=== PATIENT | female | born 1990 | race Caucasian/White ===

== ENCOUNTER 2017-09-09 20:40 | Emergency (ER) | payer SELFPAY ==
[~2017-09-09] VITALS: Ht 152.4 cm; Wt 63.2 kg
[~2017-09-09 20:40] MED LIST: BACT800T5 PO; CLOB-50 TOP; METH10TA PO
[2017-09-09 20:45] VITALS: BP 106/61; PULSE 110; RESP 18; TEMP 99; O2SAT 96
[2017-09-09 21:27] LABS: BILIRUBIN, URINE NEG (NEG); BLOOD, URINE NEG (NEG); GLUCOSE,URINE NEG (NEG); KETONE, URINE TRACE mg/dL (NEG); NITRITE,URINE NEG (NEG); URINE COLOR YELLOW (YELLW/STRAW); URINE LEUKOCYTE ESTERASE NEG (NEG)
--- NOTE | 2017-09-09 21:32 | PD ---
HPI Chief Complaint: Cold / Flu Symptoms Time Seen by Provider: 20:48 Travel History International Travel<30 days: No Contact w/Intl Traveler<30days: No Traveled to known affect area: No History of Present Illness HPI pt is a 21 y.o female who presents to the ED with a cc of Fever, and H/A. she states that yesterday morning she woke up feeling febrile. Soon after she started having chills and cold sweats. Later that day bifrontal pressure like H/ A started. H/A is 7/10 and is constant. Denies photophobia or phonophobia. She also reports having nausea and vomiting. Vomited twice yesterday.Pt also denies SOB, CP, abdominal pain, changes in BM or urination. Otherwise healthy no history of drug abuse or HIV. States symptoms are moderate, started today, constant, associated signs and symptoms in context as above. 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 She appears quite well, nontoxic. SKIN: Warm and dry. HEAD: Atraumatic. Normocephalic. EYES: Pupils equal and round. No scleral icterus. No injection or drainage. ENT: No nasal bleeding or discharge. Mucous membranes pink and moist. pharynx is mildly erythematous. NECK: Trachea midline. No JVD. R sided cervical lymphadenopathy CARDIOVASCULAR: Regular rate and rhythm. RESPIRATORY: No accessory muscle use. Clear to auscultation. Breath sounds equal bilaterally. GASTROINTESTINAL: Abdomen soft, non-tender, nondistended. Hepatic and splenic margins not palpable. MUSCULOSKELETAL: Extremities without clubbing, cyanosis, or edema. No obvious deformities. NEUROLOGICAL: Awake and alert. No obvious cranial nerve deficits. Motor grossly within normal limits. Five out of 5 muscle strength in the arms and legs. Normal speech. PSYCHIATRIC: Appropriate mood and affect; insight and judgment normal. Data Data Last Documented VS Vital Signs Date Time Temp Pulse Resp B/P (MAP) Pulse Ox O2 Delivery O2 Flow Rate FiO2 09/09/17 23:18 98 20 98/66 (77) 96 09/09/17 21:26 Room Air 09/09/17 20:45 99.0 Orders Orders Urinalysis - C+S If Indicated (09/09/17 20:48) Ed Urine Pregnancytest Poc (09/09/17 20:48) Group A Rapid Strep Screen (09/09/17 21:38) Acetaminophen (Tylenol) (09/09/17 22:00) Ondansetron Odt (Zofran Odt) (09/09/17 22:00) Ed Discharge Order (09/09/17 22:53) Strep Culture (Group A) (09/10/17 22:00) Labs Laboratory Tests Test 09/09/17 21:10 Urine Color YELLOW Urine Turbidity CLEAR Urine pH 7.0 Urine Specific Venus 1.010 Urine Protein TRACE mg/dL Urine Glucose (UA) NEG mg/dL Urine Ketones TRACE mg/dL Urine Occult Blood NEG Urine Nitrite NEG Urine Bilirubin NEG Urine Urobilinogen 2.0 MG/DL Urine Leukocyte Esterase NEG Urine RBC 0-3 /hpf Urine WBC 3-5 /hpf Urine Squamous Epithelial Cells 0-5 /hpf Urine Bacteria FEW /hpf Urine Mucus FEW /lpf Urine Yeast (Budding) RARE Microscopic Urinalysis Comment CULT NOT INDICATED MDM Medical Decision Making Medical Screen Exam Complete: Yes Emergency Medical Condition: Yes Differential Diagnosis Strep pharyngitis, influenza,viral pharyngitis, pneumonia, URI Narrative Course Patient room to the emergency department, she appears quite well in obvious distress, patient is minimally tachycardic in the low 100s. 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 Overall she appears quite healthy in no distress, there is no physical exam findings to suggest sepsis in this patient nor hypoperfusion. Her UA was negative, I do not see an indication for further workup of this patient at this time. UPT was negative as well. Her symptoms are suggestive of a viral illness probably URI with some mild upset stomach as well. She would like to be discharged. Discussed with her return to ED criteria follow-up with a primary care physician or the [facility]. Diagnosis Primary Impression: URI (upper respiratory infection) Qualified Codes: J06.9 - Acute upper respiratory infection, unspecified Referrals: [facility] Patient Instructions: General Instructions, Upper Respiratory Infection (DC) Med/Other Pt SpecificInfo: Prescription(s) given Scripts Ondansetron (Zofran) 4 Mg Tab 4 MG PO Q6HR Y for NAUSEA OR VOMITING, #20 TAB 0 Refills Prov: Esteban Monzon MD 09/09/17 Disposition: 01 DISCHARGE HOME Condition: Stable Esteban Monzon MD Sep 09, 2017 21:32
[2017-09-09 21:42] LABS: MUCUS URINE FEW /lpf (OCC); RBC, URINE 0-3 /hpf (0-3)
[2017-09-09 21:43] LABS: BACTERIA, URINE FEW /hpf; SQUAMOUS EPITHELIAL CELL URINE 0-5 /hpf (0-5)
[2017-09-09] MEDS ORDERED: ONDANSETRON ODT 4 MG TAB PO ONE (22:00)
[2017-09-09] MEDS ORDERED: ACETAMINOPHEN 325 MG TAB PO ONE (22:00)
[2017-09-09] MEDS ORDERED: ZOFR4TAB PO (23:02)
[2017-09-09 23:18] VITALS: BP 98/66
== END 2017-09-09 23:20 | disposition home or self-care (01) ==
LOC: PHED 20:40
DX: J06.9 Acute upper respiratory infection, unspecified (principal); R11.2 Nausea with vomiting, unspecified; F17.200 Nicotine dependence, unspecified, uncomplicated
CPT/HCPCS: 81001; 84703; 87081; 87880; 99283